=== PATIENT | male | born 1990 | race Two or more races ===

== ENCOUNTER 2022-01-13 18:08 | Emergency (ER) | payer SELFPAY ==
[2022-01-13] MEDS ORDERED: Tetracaine HCl/PF 0.5% 4 ML Bottle EYEBOTH ONE (18:24)
[2022-01-13] MEDS ORDERED: Fluorescein 1 MG Ophth Strip EYEBOTH ONE (18:26)
== END 2022-01-13 19:15 | disposition home or self-care (01) ==
LOC: JD.ED 18:08
DX: T15.92XA Foreign body on external eye, part unspecified, left eye, initial encounter (principal); S05.02XA Injury of conjunctiva and corneal abrasion without foreign body, left eye, initial encounter; Z72.0 Tobacco use
CPT/HCPCS: 65222; 99283-25